=== PATIENT | female | born 1955 | race Caucasian/White ===

== ENCOUNTER → 2018-10-21 | Outpatient (CLI) | payer OTHER | LOC: BMCIMAGING 09:46 | PROVIDERS: ATTEND Family Medicine | DX: Z13.820 Encounter for screening for osteoporosis (principal); M81.0 Age-related osteoporosis without current pathological fracture ==

== ENCOUNTER → 2019-01-26 | Outpatient (CLI) | payer OTHER | LOC: EMCIMAGING 09:25 | PROVIDERS: ATTEND Surgery | DX: N60.02 Solitary cyst of left breast (principal) ==